=== PATIENT | male | born 1990 | race Caucasian/White ===

== ENCOUNTER 2018-06-23 15:24 | Emergency (ER) | payer OTHER ==
[~2018-06-23] VITALS: Ht 167.6 cm; Wt 80.0 kg
[2018-06-23 15:31] VITALS: Ht 167.6 cm; Wt 80.0 kg
[2018-06-23] MEDS ORDERED: LEVETIRACETAM 1000 MG (PMX) 100 ML IVPB ONE (16:00)
[2018-06-23 17:00] VITALS: BP 135/76; PULSE 71; RESP 18
--- NOTE | 2018-06-23 17:23 | ERD ---
ER Documentation Chief Complaint Chief Complaint BIB RA FOR SZ EPISODE HX OF SEIZURE TAKES KEPPRA HPI 27-year-old man has a long history of seizure disorder usually controlled with Keppra presents today after having tonic-clonic seizure about half an hour prior to arrival. Denies any precipitating factors but did state he had broken sleep last night. He uses Keppra 500 mg twice daily and states his last seizure was about 4 months ago. He denies tongue injury, no loss of bowel or bladder control, no chest pain or shortness of breath. ROS All systems reviewed and are negative except as per history of present illness. Allergies Allergies: Coded Allergies: No Known Allergy (Unverified , 06/23/18) FmHx Family History: No diabetes Physical Exam Vitals Vital Signs Date Temp Pulse Resp B/P (MAP) Pulse Ox O2 O2 Flow FiO2 Time Delivery Rate 06/23/18 82 19 135/65 99 15:31 (88) Physical Exam GENERAL: Well-developed, well-nourished, well-hydrated, in no apparent distress, looks nontoxic in appearance HEENT: Moist mucous membranes, pink conjunctiva, no cervical spine tenderness or step-off deformities, no goiter, no jaundice or icterus, extraocular movements intact without pain. No submandibular induration, and no pharyngeal erythema NEURO: Alert and oriented 3, cranial nerves II through XII intact bilaterally, pupils equal round reactive to light, no focal deficits or facial asymmetry, sensation intact distally Strength 5/5 in upper and lower extremities bilaterally CARDIAC: Regular rate and rhythm, no murmurs rubs or gallops LUNGS: Clear bilaterally no wheezing crackles or stridor ABDOMEN: Soft nontender, no guarding, no rigidity, no rebound, no psoas sign no obturator sign. Normoactive bowel sounds SKIN: Warm and dry to touch, no abrasions, contusions, or hematomas, no lacerations, no ecchymosis, no target lesions, and without ulcers EXTREMITIES: No clubbing cyanosis or edema, calves are bilaterally symmetrical, no Homans sign, no popliteal cord sign. Distal pulses equal and bilateral PSYCH: Normal affect without agitation or irritability Results 24 hrs Current Medications Medications Dose Sig/Sherrie Start Time Status Last (Trade) Ordered Route PRN Stop Time Admin Dose Reason Admin 100 ml @ ONCE ONCE 06/23/18 DC 06/23/18 Levetiracetam 400 mls/hr IVPB 16:00 16:14 06/23/18 16:14 Procedures/MDM IV line was established patient was placed on monitoring analyst rhythm strip revealed a sinus rhythm at about 80 bpm with upright P and T waves. Patient was afebrile Patient uses a very low-dose of Keppra daily and presented today with tonic- clonic seizure activity similar to his past episodes I treated him here with Keppra 1 g IV. Patient was monitored here in the emergency department and had no further seizure activity. His vital signs remained normal and he felt well after Keppra therapy. I did recommend he increase his Keppra dose but I will defer this to his neurologist, because he states he has a neurology appointment scheduled and will see the neurologist shortly. Differential diagnoses considered, included but not limited to acute coronary syndrome, pulmonary embolism, aortic dissection, abdominal aortic aneurysm, sepsis, stroke, meningitis, encephalitis, pneumonia, appendicitis, cholecystitis, bowel obstruction, pyelonephritis, nephrolithiasis, cystitis, as well as metabolic, hematologic, and electrolyte abnormalities. As well as abscess, cellulitis, fractures, and dislocations. Patient feels much better at this time, and vital signs are normal, symptoms have improved. I did give strict instructions to return to the ED if symptoms continue or worsen, patient will otherwise follow-up with primary care physician. Patient understood instructions and agreed to plan. Disclaimer: Inadvertent spelling and grammatical errors are likely due to EHR/dictation software use and do not reflect on the overall quality of patient care. Also, please note that the electronic time recorded on this note does not necessarily reflect the actual time of the patient encounter. Departure Diagnosis: Primary Impression: Seizure disorder Condition: Good Patient Instructions: Seizure, Recurrent [Adult] NAE ROONEY MD Jun 23, 2018 17:23
== END 2018-06-23 18:15 | disposition home or self-care (01) ==
LOC: E/R 15:24
DX: G40.909 Epilepsy, unspecified, not intractable, without status epilepticus (principal); R40.2142 Coma scale, eyes open, spontaneous, at arrival to emergency department; R40.2362 Coma scale, best motor response, obeys commands, at arrival to emergency department; R40.2252 Coma scale, best verbal response, oriented, at arrival to emergency department
CPT/HCPCS: 96374; 99284; J1953